=== PATIENT | female | born 1940 | race Caucasian/White ===

== ENCOUNTER 2018-08-10 14:18 | Inpatient (IN) | payer MEDICARE, OTHER ==
[2018-08-10 14:52] LABS: ADD MAN DIFF? NO
[2018-08-10 15:00] LABS: WHITE BLOOD COUNT 5.9 10^3/ul (4.8-10.8)
[2018-08-10 15:00] LABS: BASOPHILS % 0.3 % (0.0-2.0); EOSINOPHILS # 0.2 10^3/ul (0.0-0.5); EOSINOPHILS % 2.6 % (0.0-7.0); HEMATOCRIT 42.5 % (37.0-47.0); LYMPHOCYTES # 1.7 10^3/ul (0.8-2.9); LYMPHOCYTES % 28.8 % (15.0-51.0); MEAN CORPUSCULAR HEMOGLOBIN 28.2 pg (29.0-33.0); MEAN CORPUSCULAR HGB CONC 30.6 g/dl (32.0-37.0); MEAN CORPUSCULAR VOLUME 92.2 fl (82.0-101.0); MEAN PLATELET VOLUME 9.6 fl (7.4-10.4); MONOCYTE # 0.3 10^3/ul (0.3-0.9); MONOCYTES % 5.8 % (0.0-11.0); NEUTROPHIL # 3.6 10^3/ul (1.6-7.5); NEUTROPHILS % 61.5 % (39.0-77.0); PLATELET COUNT 187 10^3/UL (140-415); RED BLOOD COUNT 4.61 10^6/ul (4.20-5.40); RED CELL DISTRIBUTION WIDTH 13.4 % (11.5-14.5)
[2018-08-10] MEDS: CEFEPIME 2GM/50 ML (PMX) 50 ML IVPB (15:01)
[2018-08-10] MEDS: SODIUM CHLORIDE 0.9% 1L BAG IV* (15:02)
[2018-08-10] MEDS: SOD CHLORIDE 0.9% 500 ML IV ×2 (15:03)
[2018-08-10 15:15] LABS: INR 1.03; PROTIME 13.6 Sec (11.9-14.9); PT RATIO 1.1
[2018-08-10 15:16] LABS: PARTIAL THROMBOPLASTIN TIME 35.7 Sec (23.0-35.0)
[2018-08-10 15:20] LABS: ANION GAP 11 (5-13); BLOOD UREA NITROGEN 29 mg/dl (7-20); CALCIUM 9.5 mg/dl (8.4-10.2); CARBON DIOXIDE 22 mmol/L (21-31); CHLORIDE 107 mmol/L (97-110); CREATININE 1.16 mg/dl (0.44-1.00); GLUCOSE 150 mg/dl (70-220); POTASSIUM 4.8 mmol/L (3.5-5.1); SODIUM 140 mmol/L (135-144)
[2018-08-10 15:32] LABS: TROPONIN-I < 0.012 ng/ml (0.000-0.120)
[2018-08-10] MEDS: VANCOMYCIN 1 GM (PMX) 250 ML IVPB (15:32)
[2018-08-10] MEDS: HALOPERIDOL 5 MG INJ IV (16:20)
[2018-08-10] MEDS: LORAZEPAM 2 MG INJ IV (18:21)
[2018-08-10 18:24] LABS: ADD UMIC NO; UR ASCORBIC ACID NEGATIVE (NEGATIVE); UR BILIRUBIN (Dip) NEGATIVE (NEGATIVE); UR BLOOD (Dip) NEGATIVE (NEGATIVE); UR CLARITY CLEAR (CLEAR); UR COLOR YELLOW (YELLOW); UR GLUCOSE (Dip) NEGATIVE (NEGATIVE); UR KETONES (Dip) NEGATIVE (NEGATIVE); UR LEUKOCYTE ESTERASE (Dip) NEGATIVE Leu/ul (NEGATIVE); UR NITRITE (Dip) NEGATIVE (NEGATIVE); UR SPECIFIC GRAVITY (Dip) 1.016 (1.003-1.030); UR TOTAL PROTEIN (Dip) NEGATIVE (NEGATIVE); UR UROBILINOGEN (Dip) NEGATIVE (NEGATIVE)
[2018-08-10 18:26] LABS: ALANINE AMINOTRANSFERASE 12 IU/L (13-69); ALBUMIN 3.8 g/dl (3.3-4.9); ALKALINE PHOSPHATASE 108 IU/L (42-121); ASPARTATE AMINO TRANSFERASE 21 IU/L (15-46); BILIRUBIN,INDIRECT 0.3 mg/dl (0-1.1); BILIRUBIN,TOTAL 0.3 mg/dl (0.2-1.3); LIPASE 115 U/L (23-300); TOTAL PROTEIN 7.5 g/dl (6.1-8.1)
[2018-08-10] MEDS ORDERED: ACETAMINOPHEN 325 MG TAB PO (18:30)
[2018-08-10] MEDS ORDERED: ONDANSETRON 4 MG INJ IV (18:30)
[2018-08-10] MEDS: LEVETIRACETAM 1000 MG (PMX) 100 ML IVPB (18:59)
[2018-08-10 22:14] LABS: LACTIC ACID 3.7 mmol/L (0.5-2.0)
[2018-08-10 23:21] LABS: AADO2 Arterial 559.7 mmHg (7.0-24.0); Allen Test ACCEPTAB; Arterial Base Excess -10.8 mmol/L (-3.0-3); Arterial Blood Gas Oxygen Sat 96.5 mmHG (95.0-100.0); Arterial COHb 0.4 % (0.0-3.0); Arterial Fraction of Oxyhgb 95.5 % (93.0-99.0); Arterial HCO3 18.3 mmol/L (22.0-26.0); Arterial MetHb 0.6 % (0.0-1.5); Arterial Total Hemglobin 16.5 g/dl (12.0-18.0); Arterial pCO2 52.9 mmhg (35-45); MODE MASK - NRB; Site Right Radial
[2018-08-10] MEDS ORDERED: LEVALBUTEROL (NEB) 1.25 MG/0.5 ML AMP (23:54)
[2018-08-10] MEDS: LEVALBUTEROL (NEB) 1.25 MG/0.5 ML AMP HHN (23:58)
[2018-08-11] MEDS ORDERED: LEVALBUTEROL (NEB) 1.25 MG/0.5 ML AMP HHN
[2018-08-11] MEDS: METOPROLOL 5 MG INJ IV (00:10)
[2018-08-11] MEDS ORDERED: LEVALBUTEROL HCL 1.25 MG INHALATION (00:30)
[2018-08-11] MEDS ORDERED: LEVALBUTEROL (NEB) 1.25 MG/0.5 ML AMP INH (01:00)
[2018-08-11] MEDS: DEXTROSE 5%-0.45% NACL 1,000 ML IV (01:24)
[2018-08-11] MEDS: LEVOFLOXACIN 500MG/D5W (PMX) 100 ML IVPB (01:24)
[2018-08-11 01:38] LABS: ABNORMAL IP MESSAGE 1; HEMATOCRIT 49.8 % (37.0-47.0); HEMOGLOBIN 15.1 g/dl (12.0-16.0); MEAN CORPUSCULAR HEMOGLOBIN 28.3 pg (29.0-33.0); MEAN CORPUSCULAR HGB CONC 30.3 g/dl (32.0-37.0); MEAN CORPUSCULAR VOLUME 93.4 fl (82.0-101.0); MEAN PLATELET VOLUME 9.8 fl (7.4-10.4); PLATELET COUNT 221 10^3/UL (140-415); RED BLOOD COUNT 5.33 10^6/ul (4.20-5.40); RED CELL DISTRIBUTION WIDTH 13.7 % (11.5-14.5)
[2018-08-11 01:38] LABS: WHITE BLOOD COUNT 31.4 10^3/ul (4.8-10.8)
[2018-08-11 01:46] LABS: HEMOGLOBIN A1C 5.1 % (0-5.9)
[2018-08-11] MEDS: ALBUTEROL/IPRATROPIUM (NEB) 3 ML AMP INH ×4 (01:46→19:43)
[2018-08-11 01:55] LABS: ALANINE AMINOTRANSFERASE 19 IU/L (13-69); ALBUMIN 3.6 g/dl (3.3-4.9); ALBUMIN/GLOBULIN RATIO 0.92; ALKALINE PHOSPHATASE 125 IU/L (42-121); ANION GAP 16 (5-13); ASPARTATE AMINO TRANSFERASE 28 IU/L (15-46); BILIRUBIN,INDIRECT 0.5 mg/dl (0-1.1); BILIRUBIN,TOTAL 0.5 mg/dl (0.2-1.3); BLOOD UREA NITROGEN 30 mg/dl (7-20); CALCIUM 9.1 mg/dl (8.4-10.2); CARBON DIOXIDE 17 mmol/L (21-31); CHLORIDE 115 mmol/L (97-110); CREATININE 1.32 mg/dl (0.44-1.00); GLUCOSE 195 mg/dl (70-220); MAGNESIUM 2.2 mg/dl (1.7-2.5); POTASSIUM 5.1 mmol/L (3.5-5.1); SODIUM 148 mmol/L (135-144); TOTAL PROTEIN 7.5 g/dl (6.1-8.1)
[2018-08-11 02:06] LABS: ADD MAN DIFF? YES; POSITIVE DIFF @See below
[2018-08-11 02:28] LABS: BAND NEUTROPHILS #M 2.8 10^3/ul (0.0-0.6); BAND NEUTROPHILS % (M) 9 % (0-4); GIANT THROMBO% (M) 1 % (0-0); LYMPHOCYTES #M 1.2 10^3/ul (0.8-2.9); LYMPHOCYTES % (M) 4 % (15-51); MONOCYTE #M 2.5 10^3/ul (0.3-0.9); MONOCYTES % (M) 8 % (0-11); PLATELET ESTIMATE NORMAL; POIKILOCYTOSIS 1+ (0-0); SEG NEUT #M 25.7 10^3/ul (1.6-7.5); SEGMENTED NEUTROPHILS (M) % 79 % (39-77); SMUDGE%M 2 % (0-0)
[2018-08-11] MEDS ORDERED: OLANZAPINE 10 MG VIAL IM (02:30)
[2018-08-11 02:57] LABS: AADO2 Arterial 252.9 mmHg (7.0-24.0); Allen Test ACCEPTAB; Arterial Base Excess -8.7 mmol/L (-3.0-3); Arterial Blood Gas Oxygen Sat 89.1 mmHG (95.0-100.0); Arterial COHb 0.9 % (0.0-3.0); Arterial Fraction of Oxyhgb 87.9 % (93.0-99.0); Arterial HCO3 17.8 mmol/L (22.0-26.0); Arterial MetHb 0.4 % (0.0-1.5); Arterial Total Hemglobin 15.8 g/dl (12.0-18.0); Arterial pCO2 40.6 mmhg (35-45); MODE MASK - VENTI; Site Right Radial
[2018-08-11] MEDS: LACTULOSE 30ML CUP PO ×4 (05:53→21:23)
[2018-08-11] MEDS: FUROSEMIDE 20 MG INJ IV ×3 (05:57→17:55)
[2018-08-11] MEDS ORDERED: LACTULOSE 30ML CUP PO (06:00)
[2018-08-11] MEDS: LEVALBUTEROL (NEB) 1.25 MG/0.5 ML AMP HHN ×2 (08:13→15:42)
[2018-08-11 08:48] LABS: AMPHETAMINE/METHAMPHETAMINE Negative (NEGATIVE); BARBITURATES Negative (NEGATIVE); BENZODIAZEPINES Negative (NEGATIVE); CANNABINOIDS Negative (NEGATIVE); COCAINE Negative (NEGATIVE); OPIATES Negative (NEGATIVE)
[2018-08-11] MEDS: FAMOTIDINE 20 MG TAB PO ×2 (09:00→09:04)
[2018-08-11] MEDS: DOCUSATE SODIUM 250 MG CAP PO ×2 (09:00→09:02)
[2018-08-11] MEDS: QUETIAPINE 25 MG TAB PO ×2 (09:00→09:02)
[2018-08-11] MEDS: CLOPIDOGREL 75 MG TAB PO ×3 (09:00→15:30)
[2018-08-11] MEDS: DORZOLAMIDE 2% 10 ML OPH RIGHT EYE ×2 (09:02→21:22)
[2018-08-11] MEDS: LEVETIRACETAM 500 MG (PMX) 100 ML IVPB ×2 (09:02→21:22)
[2018-08-11] MEDS: CLONIDINE 0.2 MG/24 HR PATCH TRANSDERM (09:03)
[2018-08-11 11:41] LABS: CREATINE KINASE 87 IU/L (23-200)
[2018-08-11 11:51] LABS: CK INDEX 4.6; CK-MB 4.01 ng/ml (0.0-2.4)
[2018-08-11 12:42] LABS: B-TYPE NATRIURETIC PEPTIDE 13000 PG/ML (0-450)
[2018-08-11 13:05] LABS: AADO2 Arterial 249.3 mmHg (7.0-24.0); Allen Test ACCEPTAB; Arterial Base Excess -6.6 mmol/L (-3.0-3); Arterial Blood Gas Oxygen Sat 95.7 mmHG (95.0-100.0); Arterial COHb 0.7 % (0.0-3.0); Arterial Fraction of Oxyhgb 94.7 % (93.0-99.0); Arterial HCO3 17.1 mmol/L (22.0-26.0); Arterial MetHb 0.3 % (0.0-1.5); Arterial Total Hemglobin 14.5 g/dl (12.0-18.0); Arterial pCO2 29.7 mmhg (35-45); Blood Gas IEPAP 18/6; Blood Gas PS 12; MODE MASK - BIPAP; Site Right Radial
[2018-08-11] MEDS: D5W-0.45 NACL + KCL 20 MEQ 1,000 ML IV (13:38)
[2018-08-11 14:11] LABS: CREATINE KINASE 83 IU/L (23-200)
[2018-08-11 14:22] LABS: CK INDEX 4.9; CK-MB 4.05 ng/ml (0.0-2.4)
[2018-08-11] MEDS: ASPIRIN (EC) 81 MG TAB PO (15:30)
[2018-08-11 17:43] LABS: CREATINE KINASE 78 IU/L (23-200)
[2018-08-11 17:55] LABS: CK INDEX 5.1; CK-MB 3.94 ng/ml (0.0-2.4)
[2018-08-11] MEDS: DOXYCYCLINE 100 MG in SOD CHLORIDE 0.9% 250 ML IVPB (21:21)
[2018-08-11] MEDS: QUETIAPINE 100 MG TAB PO (21:23)
[2018-08-11] MEDS: traZODone 50 MG TAB PO (21:23)
[2018-08-11] MEDS: LATANOPROST 0.005% 2.5 ML OPH BOTH EYES (21:30)
[2018-08-11 21:43] LABS: CREATINE KINASE 106 IU/L (23-200)
[2018-08-11 21:53] LABS: CK INDEX 3.7; CK-MB 3.96 ng/ml (0.0-2.4)
[2018-08-12] MEDS: FUROSEMIDE 20 MG INJ IV ×4 (00:19→17:30)
[2018-08-12] MEDS: LEVALBUTEROL (NEB) 1.25 MG/0.5 ML AMP HHN ×3 (00:45→15:40)
[2018-08-12] MEDS: ALBUTEROL/IPRATROPIUM (NEB) 3 ML AMP INH ×4 (02:30→19:22)
[2018-08-12] MEDS: LEVOFLOXACIN 500MG/D5W (PMX) 100 ML IVPB (04:20)
[2018-08-12 06:38] LABS: LACTIC ACID 1.8 mmol/L (0.5-2.0)
[2018-08-12 07:32] LABS: ADD MAN DIFF? NO
[2018-08-12 07:34] LABS: WHITE BLOOD COUNT 14.5 10^3/ul (4.8-10.8)
[2018-08-12 07:34] LABS: BASOPHILS % 0.2 % (0.0-2.0); EOSINOPHILS # 0.2 10^3/ul (0.0-0.5); EOSINOPHILS % 1.2 % (0.0-7.0); HEMATOCRIT 38.3 % (37.0-47.0); HEMOGLOBIN 11.9 g/dl (12.0-16.0); LYMPHOCYTES # 1.5 10^3/ul (0.8-2.9); LYMPHOCYTES % 10.1 % (15.0-51.0); MEAN CORPUSCULAR HEMOGLOBIN 28.3 pg (29.0-33.0); MEAN CORPUSCULAR HGB CONC 31.1 g/dl (32.0-37.0); MEAN CORPUSCULAR VOLUME 91.2 fl (82.0-101.0); MEAN PLATELET VOLUME 10.9 fl (7.4-10.4); MONOCYTE # 1.2 10^3/ul (0.3-0.9); MONOCYTES % 8.4 % (0.0-11.0); NEUTROPHIL # 11.5 10^3/ul (1.6-7.5); NEUTROPHILS % 79.5 % (39.0-77.0); PLATELET COUNT 114 10^3/UL (140-415); RED CELL DISTRIBUTION WIDTH 14.2 % (11.5-14.5)
[2018-08-12 07:52] LABS: ANION GAP 11 (5-13); BLOOD UREA NITROGEN 38 mg/dl (7-20); CALCIUM 9.1 mg/dl (8.4-10.2); CARBON DIOXIDE 19 mmol/L (21-31); CHLORIDE 111 mmol/L (97-110); CREATININE 1.39 mg/dl (0.44-1.00); GLUCOSE 136 mg/dl (70-220); POTASSIUM 4.5 mmol/L (3.5-5.1); SODIUM 141 mmol/L (135-144)
[2018-08-12] MEDS: DOCUSATE SODIUM 250 MG CAP PO (09:00)
[2018-08-12] MEDS: LACTULOSE 30ML CUP PO ×2 (09:00→20:51)
[2018-08-12] MEDS: QUETIAPINE 25 MG TAB PO (09:00)
[2018-08-12] MEDS: CLOPIDOGREL 75 MG TAB PO (09:01)
[2018-08-12] MEDS: D5W-0.45 NACL + KCL 20 MEQ 1,000 ML IV (09:02)
[2018-08-12] MEDS: FAMOTIDINE 20 MG TAB PO (09:02)
[2018-08-12] MEDS: DOXYCYCLINE 100 MG in SOD CHLORIDE 0.9% 250 ML IVPB ×2 (09:03→21:13)
[2018-08-12] MEDS: LEVETIRACETAM 500 MG (PMX) 100 ML IVPB ×2 (09:03→20:50)
[2018-08-12] MEDS: DORZOLAMIDE 2% 10 ML OPH RIGHT EYE ×2 (09:05→20:51)
[2018-08-12 10:29] LABS: CREATINE KINASE 40 IU/L (23-200)
[2018-08-12 10:42] LABS: CK-MB 3.19 ng/ml (0.0-2.4); TROPONIN-I 0.887 ng/ml (0.000-0.120)
[2018-08-12 14:32] LABS: CREATINE KINASE 32 IU/L (23-200)
[2018-08-12 14:44] LABS: CK INDEX 8.6; CK-MB 2.76 ng/ml (0.0-2.4)
[2018-08-12 14:47] LABS: TROPONIN-I 0.736 ng/ml (0.000-0.120)
[2018-08-12 18:49] LABS: ANION GAP 13 (5-13); BLOOD UREA NITROGEN 35 mg/dl (7-20); CALCIUM 9.5 mg/dl (8.4-10.2); CARBON DIOXIDE 22 mmol/L (21-31); CHLORIDE 107 mmol/L (97-110); CREATININE 1.34 mg/dl (0.44-1.00); GLUCOSE 125 mg/dl (70-220); POTASSIUM 4.1 mmol/L (3.5-5.1); SODIUM 142 mmol/L (135-144)
[2018-08-12] MEDS: FLUTICASONE/VILANTEROL 200-25 INH DEVICE INH (19:00)
[2018-08-12] MEDS: MUPIROCIN 2% 22 GM OINT TOP (20:51)
[2018-08-12] MEDS: LATANOPROST 0.005% 2.5 ML OPH BOTH EYES (21:15)
[2018-08-12 22:45] LABS: CREATINE KINASE 20 IU/L (23-200)
[2018-08-12 22:55] LABS: CK INDEX 9.7; CK-MB 1.94 ng/ml (0.0-2.4)
[2018-08-12 23:17] LABS: TROPONIN-I 0.658 ng/ml (0.000-0.120)
[2018-08-13] MEDS: LEVALBUTEROL (NEB) 1.25 MG/0.5 ML AMP HHN ×3 (00:09→16:12)
[2018-08-13] MEDS: FUROSEMIDE 20 MG INJ IV ×4 (00:22→17:56)
[2018-08-13] MEDS: LEVOFLOXACIN 500MG/D5W (PMX) 100 ML IVPB (01:16)
[2018-08-13] MEDS: ALBUTEROL/IPRATROPIUM (NEB) 3 ML AMP INH ×4 (02:00→20:00)
[2018-08-13 05:10] LABS: AADO2 Arterial 217.7 mmHg (7.0-24.0); Allen Test ACCEPTAB; Arterial Base Excess -3.1 mmol/L (-3.0-3); Arterial Blood Gas Oxygen Sat 97.5 mmHG (95.0-100.0); Arterial COHb 0.3 % (0.0-3.0); Arterial HCO3 20.8 mmol/L (22.0-26.0); Arterial MetHb 0.2 % (0.0-1.5); Arterial Total Hemglobin 12.4 g/dl (12.0-18.0); Arterial pCO2 33.5 mmhg (35-45); Blood Gas IEPAP 18/8; MODE MASK - BIPAP; Site Right Radial
[2018-08-13 06:13] LABS: ADD MAN DIFF? NO
[2018-08-13 06:18] LABS: BASOPHILS % 0.2 % (0.0-2.0); EOSINOPHILS # 0.4 10^3/ul (0.0-0.5); EOSINOPHILS % 2.9 % (0.0-7.0); HEMATOCRIT 35.3 % (37.0-47.0); LYMPHOCYTES # 1.5 10^3/ul (0.8-2.9); LYMPHOCYTES % 10.2 % (15.0-51.0); MEAN CORPUSCULAR HEMOGLOBIN 28.3 pg (29.0-33.0); MEAN CORPUSCULAR HGB CONC 31.2 g/dl (32.0-37.0); MEAN CORPUSCULAR VOLUME 90.7 fl (82.0-101.0); MEAN PLATELET VOLUME 10.9 fl (7.4-10.4); MONOCYTE # 1.1 10^3/ul (0.3-0.9); MONOCYTES % 7.7 % (0.0-11.0); NEUTROPHIL # 11.2 10^3/ul (1.6-7.5); NEUTROPHILS % 78.5 % (39.0-77.0); PLATELET COUNT 104 10^3/UL (140-415); RED BLOOD COUNT 3.89 10^6/ul (4.20-5.40); RED CELL DISTRIBUTION WIDTH 14.3 % (11.5-14.5)
[2018-08-13 06:18] LABS: WHITE BLOOD COUNT 14.3 10^3/ul (4.8-10.8)
[2018-08-13 06:45] LABS: CREATINE KINASE 22 IU/L (23-200)
[2018-08-13 06:55] LABS: LACTIC ACID 1.7 mmol/L (0.5-2.0)
[2018-08-13 06:58] LABS: CK INDEX 6.9; CK-MB 1.51 ng/ml (0.0-2.4)
[2018-08-13 07:09] LABS: TROPONIN-I 0.502 ng/ml (0.000-0.120)
[2018-08-13 07:11] LABS: FREE THYROXINE INDEX (Calc) 2.83 ug/ml (0.65-3.89); T3 UPTAKE 38.3 % (23.5-40.5); T4 (THYROXINE) 7.4 ug/dl (5.5-11.0)
[2018-08-13] MEDS: LEVETIRACETAM 500 MG (PMX) 100 ML IVPB ×2 (07:29→20:51)
[2018-08-13] MEDS: CLOPIDOGREL 75 MG TAB PO (07:29)
[2018-08-13] MEDS: FAMOTIDINE 20 MG TAB PO (07:29)
[2018-08-13] MEDS: LACTULOSE 30ML CUP PO ×2 (07:29→20:51)
[2018-08-13] MEDS: MUPIROCIN 2% 22 GM OINT TOP ×2 (07:30→20:50)
[2018-08-13] MEDS: D5W-0.45 NACL + KCL 20 MEQ 1,000 ML IV (07:30)
[2018-08-13] MEDS: DOCUSATE SODIUM 250 MG CAP PO (07:31)
[2018-08-13] MEDS: DORZOLAMIDE 2% 10 ML OPH RIGHT EYE ×2 (07:31→20:50)
[2018-08-13 07:59] LABS: ALANINE AMINOTRANSFERASE 14 IU/L (13-69); ALBUMIN 3.4 g/dl (3.3-4.9); ALBUMIN/GLOBULIN RATIO 0.94; ALKALINE PHOSPHATASE 92 IU/L (42-121); ANION GAP 12 (5-13); ASPARTATE AMINO TRANSFERASE 20 IU/L (15-46); BILIRUBIN,INDIRECT 0.5 mg/dl (0-1.1); BILIRUBIN,TOTAL 0.5 mg/dl (0.2-1.3); BLOOD UREA NITROGEN 33 mg/dl (7-20); CALCIUM 9.1 mg/dl (8.4-10.2); CARBON DIOXIDE 22 mmol/L (21-31); CHLORIDE 110 mmol/L (97-110); CREATININE 1.19 mg/dl (0.44-1.00); GLUCOSE 132 mg/dl (70-220); POTASSIUM 3.5 mmol/L (3.5-5.1); SODIUM 144 mmol/L (135-144)
[2018-08-13] MEDS: FLUTICASONE/VILANTEROL 200-25 INH DEVICE INH (09:00)
[2018-08-13] MEDS: DOXYCYCLINE 100 MG in SOD CHLORIDE 0.9% 250 ML IVPB ×2 (09:16→21:05)
[2018-08-13 09:58] LABS: CREATINE KINASE 36 IU/L (23-200)
[2018-08-13 10:09] LABS: CK INDEX 3.2; CK-MB 1.15 ng/ml (0.0-2.4)
[2018-08-13 10:10] LABS: TROPONIN-I 0.367 ng/ml (0.000-0.120)
[2018-08-13] MEDS: FOSFOMYCIN 3 GM PACKET PO (17:56)
[2018-08-13] MEDS: LATANOPROST 0.005% 2.5 ML OPH BOTH EYES (20:50)
[2018-08-14] MEDS: D5W-0.45 NACL + KCL 20 MEQ 1,000 ML IV ×2 (00:20→19:25)
[2018-08-14] MEDS: FUROSEMIDE 20 MG INJ IV ×4 (00:21→18:16)
[2018-08-14] MEDS: ALBUTEROL/IPRATROPIUM (NEB) 3 ML AMP INH ×3 (02:00→13:30)
[2018-08-14] MEDS: LEVOFLOXACIN 500MG/D5W (PMX) 100 ML IVPB (02:12)
[2018-08-14 05:02] LABS: AADO2 Arterial 145.3 mmHg (7.0-24.0); Allen Test ACCEPTAB; Arterial Base Excess 0.2 mmol/L (-3.0-3); Arterial Blood Gas Oxygen Sat 97.5 mmHG (95.0-100.0); Arterial COHb 0.8 % (0.0-3.0); Arterial Fraction of Oxyhgb 96.5 % (93.0-99.0); Arterial HCO3 24.5 mmol/L (22.0-26.0); Arterial MetHb 0.2 % (0.0-1.5); Arterial Total Hemglobin 12.3 g/dl (12.0-18.0); Arterial pCO2 38.7 mmhg (35-45); Blood Gas IEPAP 18/8; Blood Gas PS 10; MODE MASK - BIPAP; Site Right Radial
[2018-08-14 05:29] LABS: ADD MAN DIFF? NO
[2018-08-14 05:50] LABS: BASOPHILS % 0.3 % (0.0-2.0); EOSINOPHILS # 0.5 10^3/ul (0.0-0.5); EOSINOPHILS % 3.7 % (0.0-7.0); HEMOGLOBIN 11.1 g/dl (12.0-16.0); LYMPHOCYTES % 14.1 % (15.0-51.0); MEAN CORPUSCULAR HEMOGLOBIN 28.4 pg (29.0-33.0); MEAN CORPUSCULAR HGB CONC 31.7 g/dl (32.0-37.0); MEAN CORPUSCULAR VOLUME 89.5 fl (82.0-101.0); MEAN PLATELET VOLUME 10.3 fl (7.4-10.4); MONOCYTE # 1.3 10^3/ul (0.3-0.9); MONOCYTES % 8.8 % (0.0-11.0); NEUTROPHIL # 10.3 10^3/ul (1.6-7.5); NEUTROPHILS % 72.5 % (39.0-77.0); PLATELET COUNT 124 10^3/UL (140-415); RED BLOOD COUNT 3.91 10^6/ul (4.20-5.40); RED CELL DISTRIBUTION WIDTH 14.2 % (11.5-14.5)
[2018-08-14 05:50] LABS: WHITE BLOOD COUNT 14.2 10^3/ul (4.8-10.8)
[2018-08-14 06:12] LABS: ANION GAP 11 (5-13); BLOOD UREA NITROGEN 29 mg/dl (7-20); CARBON DIOXIDE 26 mmol/L (21-31); CHLORIDE 107 mmol/L (97-110); CREATININE 1.17 mg/dl (0.44-1.00); GLUCOSE 121 mg/dl (70-220); POTASSIUM 3.5 mmol/L (3.5-5.1); SODIUM 144 mmol/L (135-144)
[2018-08-14] MEDS: LEVALBUTEROL (NEB) 1.25 MG/0.5 ML AMP HHN ×3 (07:43→13:30)
[2018-08-14] MEDS: MUPIROCIN 2% 22 GM OINT TOP ×2 (08:48→22:55)
[2018-08-14] MEDS: FAMOTIDINE 20 MG TAB PO (08:52)
[2018-08-14] MEDS: LACTULOSE 30ML CUP PO ×2 (08:52→21:24)
[2018-08-14] MEDS: LEVETIRACETAM 500 MG (PMX) 100 ML IVPB ×2 (08:52→21:27)
[2018-08-14] MEDS: DOCUSATE SODIUM 250 MG CAP PO (08:52)
[2018-08-14] MEDS: CLOPIDOGREL 75 MG TAB PO (08:52)
[2018-08-14] MEDS: DOXYCYCLINE 100 MG in SOD CHLORIDE 0.9% 250 ML IVPB ×2 (08:53→21:51)
[2018-08-14] MEDS: FLUTICASONE/VILANTEROL 200-25 INH DEVICE INH (08:54)
[2018-08-14] MEDS: DORZOLAMIDE 2% 10 ML OPH RIGHT EYE ×2 (09:03→22:55)
[2018-08-14] MEDS: METOPROLOL 25 MG TAB PO ×2 (11:46→21:25)
[2018-08-14] MEDS: LATANOPROST 0.005% 2.5 ML OPH BOTH EYES (21:25)
[2018-08-15] MEDS: LEVALBUTEROL (NEB) 1.25 MG/0.5 ML AMP HHN ×3 (00:19→15:19)
[2018-08-15] MEDS: FUROSEMIDE 20 MG INJ IV ×4 (00:33→12:00)
[2018-08-15] MEDS: LEVOFLOXACIN 500MG/D5W (PMX) 100 ML IVPB (01:18)
[2018-08-15 07:44] LABS: AADO2 Arterial 89.7 mmHg (7.0-24.0); Allen Test ACCEPTAB; Arterial Base Excess 0.4 mmol/L (-3.0-3); Arterial Blood Gas Oxygen Sat 95.9 mmHG (95.0-100.0); Arterial COHb 0.4 % (0.0-3.0); Arterial Fraction of Oxyhgb 95.2 % (93.0-99.0); Arterial HCO3 24.5 mmol/L (22.0-26.0); Arterial MetHb 0.3 % (0.0-1.5); Arterial Total Hemglobin 11.4 g/dl (12.0-18.0); Arterial pCO2 37.5 mmhg (35-45); MODE NASAL CANNULA; Site Left Radial
[2018-08-15 08:20] LABS: ADD MAN DIFF? NO
[2018-08-15 08:26] LABS: ABNORMAL IP MESSAGE 1; BASOPHIL # 0.1 10^3/ul (0.0-0.1); BASOPHILS % 0.4 % (0.0-2.0); EOSINOPHILS # 0.8 10^3/ul (0.0-0.5); EOSINOPHILS % 5.6 % (0.0-7.0); HEMATOCRIT 35.4 % (37.0-47.0); HEMOGLOBIN 11.1 g/dl (12.0-16.0); LYMPHOCYTES # 2.5 10^3/ul (0.8-2.9); LYMPHOCYTES % 17.5 % (15.0-51.0); MEAN CORPUSCULAR HEMOGLOBIN 28.7 pg (29.0-33.0); MEAN CORPUSCULAR HGB CONC 31.4 g/dl (32.0-37.0); MEAN CORPUSCULAR VOLUME 91.5 fl (82.0-101.0); MEAN PLATELET VOLUME 9.9 fl (7.4-10.4); MONOCYTE # 1.5 10^3/ul (0.3-0.9); MONOCYTES % 10.8 % (0.0-11.0); NEUTROPHIL # 9.3 10^3/ul (1.6-7.5); NEUTROPHILS % 65.3 % (39.0-77.0); PLATELET COUNT 143 10^3/UL (140-415); RED BLOOD COUNT 3.87 10^6/ul (4.20-5.40); RED CELL DISTRIBUTION WIDTH 14.3 % (11.5-14.5)
[2018-08-15 08:26] LABS: WHITE BLOOD COUNT 14.2 10^3/ul (4.8-10.8)
[2018-08-15 08:30] LABS: POSITIVE DIFF @See below
[2018-08-15 08:53] LABS: ANION GAP 9 (5-13); BLOOD UREA NITROGEN 28 mg/dl (7-20); CALCIUM 9.2 mg/dl (8.4-10.2); CARBON DIOXIDE 29 mmol/L (21-31); CHLORIDE 105 mmol/L (97-110); CREATININE 1.12 mg/dl (0.44-1.00); GLUCOSE 111 mg/dl (70-220); MAGNESIUM 1.6 mg/dl (1.7-2.5); POTASSIUM 3.1 mmol/L (3.5-5.1); SODIUM 143 mmol/L (135-144)
[2018-08-15] MEDS: LACTULOSE 30ML CUP PO (09:00)
[2018-08-15] MEDS: DOCUSATE SODIUM 250 MG CAP PO (09:00)
[2018-08-15] MEDS: DOXYCYCLINE 100 MG in SOD CHLORIDE 0.9% 250 ML IVPB ×2 (09:04→21:49)
[2018-08-15] MEDS: METOPROLOL 25 MG TAB PO ×2 (09:04→21:52)
[2018-08-15] MEDS: CLOPIDOGREL 75 MG TAB PO (09:04)
[2018-08-15] MEDS: DORZOLAMIDE 2% 10 ML OPH RIGHT EYE ×2 (09:04→21:48)
[2018-08-15] MEDS: MUPIROCIN 2% 22 GM OINT TOP ×2 (09:04→21:47)
[2018-08-15] MEDS: FAMOTIDINE 20 MG TAB PO (09:04)
[2018-08-15] MEDS: LEVETIRACETAM 500 MG (PMX) 100 ML IVPB (09:04)
[2018-08-15] MEDS: FLUTICASONE/VILANTEROL 200-25 INH DEVICE INH (09:14)
[2018-08-15] MEDS: MAGNESIUM SULFATE 1 GM/D5W 100 ML IVPB (10:53)
[2018-08-15] MEDS: POTASSIUM CHLORIDE 20 MEQ POWDER FOR ORAL SOLN NGT ×2 (10:53→12:57)
[2018-08-15] MEDS: DEXTROSE 5%-0.45% NACL 1,000 ML IV (15:15)
[2018-08-15] MEDS ORDERED: LEVETIRACETAM 500 MG TAB PO (21:00)
[2018-08-15] MEDS: LATANOPROST 0.005% 2.5 ML OPH BOTH EYES (21:00)
[2018-08-15] MEDS: LEVETIRACETAM (100 MG/ML) 5ML CUP NGT (21:47)
[2018-08-16] MEDS: LEVALBUTEROL (NEB) 1.25 MG/0.5 ML AMP HHN ×3 (00:56→16:14)
[2018-08-16 08:09] LABS: ANION GAP 10 (5-13); BLOOD UREA NITROGEN 28 mg/dl (7-20); CALCIUM 9.5 mg/dl (8.4-10.2); CARBON DIOXIDE 26 mmol/L (21-31); CHLORIDE 110 mmol/L (97-110); CREATININE 0.79 mg/dl (0.44-1.00); GLUCOSE 111 mg/dl (70-220); POTASSIUM 4.1 mmol/L (3.5-5.1); SODIUM 146 mmol/L (135-144)
[2018-08-16] MEDS: LEVETIRACETAM (100 MG/ML) 5ML CUP NGT ×2 (08:36→20:47)
[2018-08-16] MEDS: DOXYCYCLINE 100 MG in SOD CHLORIDE 0.9% 250 ML IVPB ×2 (08:36→20:48)
[2018-08-16] MEDS: LEVOFLOXACIN 500 MG TAB NGT (08:37)
[2018-08-16] MEDS: FLUTICASONE/VILANTEROL 200-25 INH DEVICE INH (08:37)
[2018-08-16] MEDS: DOCUSATE SODIUM 250 MG CAP PO (08:37)
[2018-08-16] MEDS: CLOPIDOGREL 75 MG TAB PO (08:37)
[2018-08-16] MEDS: FAMOTIDINE 20 MG TAB PO (08:37)
[2018-08-16] MEDS: METOPROLOL 25 MG TAB PO ×2 (08:37→20:48)
[2018-08-16] MEDS: MUPIROCIN 2% 22 GM OINT TOP ×2 (08:38→20:49)
[2018-08-16] MEDS: DORZOLAMIDE 2% 10 ML OPH RIGHT EYE ×2 (08:38→20:49)
[2018-08-16] MEDS: ACETAMINOPHEN 325 MG TAB PO (09:09)
[2018-08-16] MEDS: NYSTATIN 30 GM POWDER BTL TOP (20:47)
[2018-08-16] MEDS: LATANOPROST 0.005% 2.5 ML OPH BOTH EYES (20:48)
[2018-08-17] MEDS: LEVALBUTEROL (NEB) 1.25 MG/0.5 ML AMP HHN ×3 (01:28→16:00)
[2018-08-17] MEDS: METOPROLOL 25 MG TAB PO ×2 (09:00→21:16)
[2018-08-17] MEDS: FLUTICASONE/VILANTEROL 200-25 INH DEVICE INH (09:08)
[2018-08-17] MEDS: MUPIROCIN 2% 22 GM OINT TOP ×2 (09:09→21:17)
[2018-08-17] MEDS: NYSTATIN 30 GM POWDER BTL TOP ×2 (09:09→21:17)
[2018-08-17] MEDS: LEVETIRACETAM (100 MG/ML) 5ML CUP NGT ×2 (09:11→21:00)
[2018-08-17] MEDS: DORZOLAMIDE 2% 10 ML OPH RIGHT EYE ×2 (09:11→21:16)
[2018-08-17] MEDS: DOXYCYCLINE 100 MG in SOD CHLORIDE 0.9% 250 ML IVPB ×2 (09:15→21:21)
[2018-08-17] MEDS: DOCUSATE SODIUM 250 MG CAP PO (09:16)
[2018-08-17] MEDS: FAMOTIDINE 20 MG TAB PO (09:16)
[2018-08-17] MEDS: LEVOFLOXACIN 500 MG TAB NGT (09:16)
[2018-08-17] MEDS: CLOPIDOGREL 75 MG TAB PO (09:16)
[2018-08-17] MEDS: ACETAMINOPHEN 325 MG TAB PO (21:16)
[2018-08-17] MEDS: LATANOPROST 0.005% 2.5 ML OPH BOTH EYES (21:17)
== END 2018-08-17 23:01 | DRG 871 ==
LOC: 5EC 08-17 14:45 → E/R 14:18 → 2NE 08-15 15:35 → ICU 18:24
PROC: 5A09457 Assistance with Respiratory Ventilation, 24-96 Consecutive Hours, Continuous Positive Airway Pressure (ICD-10-PCS; principal; 2018-08-10)
DX: A41.9 Sepsis, unspecified organism (principal); R65.21 Severe sepsis with septic shock; J69.0 Pneumonitis due to inhalation of food and vomit; J96.02 Acute respiratory failure with hypercapnia; J96.01 Acute respiratory failure with hypoxia; G93.41 Metabolic encephalopathy; I21.A1 Myocardial infarction type 2; E87.2 Acidosis; F20.0 Paranoid schizophrenia; I13.0 Hypertensive heart and chronic kidney disease with heart failure and stage 1 through stage 4 chronic kidney disease, or unspecified chronic kidney disease; J44.1 Chronic obstructive pulmonary disease with (acute) exacerbation; N17.9 Acute kidney failure, unspecified; N39.0 Urinary tract infection, site not specified; I42.9 Cardiomyopathy, unspecified; I50.9 Heart failure, unspecified; N18.9 Chronic kidney disease, unspecified; B95.62 Methicillin resistant Staphylococcus aureus infection as the cause of diseases classified elsewhere; D69.6 Thrombocytopenia, unspecified; D64.9 Anemia, unspecified; E66.01 Morbid (severe) obesity due to excess calories; F01.50 Vascular dementia, unspecified severity, without behavioral disturbance, psychotic disturbance, mood disturbance, and anxiety; G62.9 Polyneuropathy, unspecified; G40.909 Epilepsy, unspecified, not intractable, without status epilepticus; I25.10 Atherosclerotic heart disease of native coronary artery without angina pectoris; K21.9 Gastro-esophageal reflux disease without esophagitis; M19.90 Unspecified osteoarthritis, unspecified site; M47.9 Spondylosis, unspecified; M25.60 Stiffness of unspecified joint, not elsewhere classified; R13.10 Dysphagia, unspecified; R19.7 Diarrhea, unspecified; R53.81 Other malaise; Z68.36 Body mass index [BMI] 36.0-36.9, adult; Z74.01 Bed confinement status; Z87.891 Personal history of nicotine dependence
CPT/HCPCS: 36415; 36600; 70450; 71045; 74176; 76705; 80048; 80053; 80076; 80307; 81003; 82550; 82553; 82803; 82962; 83036; 83605; 83690; 83735; 83880; 84436; 84443; 84479; 84484; 85025; 85610; 85730; 87040; 87081; 87086; 92526; 92610; 93005; 93306; 94640; 94660; 94664; 96374; 96375; 99291-25

== ENCOUNTER 2018-12-30 12:05 | Inpatient (IN) | payer MEDICARE, OTHER ==
[2018-12-30] MEDS ORDERED: SODIUM CHLORIDE 0.9% 1L BAG IV* (12:09)
[2018-12-30 12:25] LABS: ADD MAN DIFF? NO
[2018-12-30] MEDS: SODIUM CHLORIDE 0.9% 1L BAG IV* (12:37)
[2018-12-30] MEDS: CEFEPIME 2GM/50 ML (PMX) 50 ML IVPB (12:37)
[2018-12-30] MEDS: ACETAMINOPHEN 325 MG TAB PO (12:37)
[2018-12-30 12:41] LABS: WHITE BLOOD COUNT 15.5 10^3/ul (4.8-10.8)
[2018-12-30 12:41] LABS: BASOPHIL # 0.1 10^3/ul (0.0-0.1); BASOPHILS % 0.5 % (0.0-2.0); EOSINOPHILS # 0.1 10^3/ul (0.0-0.5); EOSINOPHILS % 0.5 % (0.0-7.0); HEMOGLOBIN 10.1 g/dl (12.0-16.0); LYMPHOCYTES # 0.7 10^3/ul (0.8-2.9); LYMPHOCYTES % 4.4 % (15.0-51.0); MEAN CORPUSCULAR HEMOGLOBIN 26.6 pg (29.0-33.0); MEAN CORPUSCULAR HGB CONC 30.6 g/dl (32.0-37.0); MEAN CORPUSCULAR VOLUME 87.1 fl (82.0-101.0); MEAN PLATELET VOLUME 9.6 fl (7.4-10.4); MONOCYTE # 1.3 10^3/ul (0.3-0.9); MONOCYTES % 8.6 % (0.0-11.0); NEUTROPHIL # 13.2 10^3/ul (1.6-7.5); NEUTROPHILS % 84.8 % (39.0-77.0); PLATELET COUNT 330 10^3/UL (140-415); RED BLOOD COUNT 3.79 10^6/ul (4.20-5.40); RED CELL DISTRIBUTION WIDTH 16.6 % (11.5-14.5)
[2018-12-30 12:54] LABS: INR 1.15; PROTIME 14.8 Sec (11.9-14.9); PT RATIO 1.2
[2018-12-30 12:55] LABS: ALANINE AMINOTRANSFERASE 22 IU/L (13-69); ALBUMIN 3.8 g/dl (3.3-4.9); ALBUMIN/GLOBULIN RATIO 0.95; ALKALINE PHOSPHATASE 207 IU/L (42-121); ANION GAP 10 (5-13); ASPARTATE AMINO TRANSFERASE 47 IU/L (15-46); BILIRUBIN,INDIRECT 0.2 mg/dl (0-1.1); BILIRUBIN,TOTAL 0.2 mg/dl (0.2-1.3); BLOOD UREA NITROGEN 31 mg/dl (7-20); CALCIUM 9.6 mg/dl (8.4-10.2); CARBON DIOXIDE 27 mmol/L (21-31); CHLORIDE 107 mmol/L (97-110); CREATININE 1.14 mg/dl (0.44-1.00); GLUCOSE 199 mg/dl (70-220); POTASSIUM 4.1 mmol/L (3.5-5.1); SODIUM 144 mmol/L (135-144); TOTAL PROTEIN 7.8 g/dl (6.1-8.1)
[2018-12-30 13:06] LABS: TROPONIN-I < 0.012 ng/ml (0.000-0.120)
[2018-12-30] MEDS: VANCOMYCIN 1 GM (PMX) 250 ML IVPB (13:40)
[2018-12-30] MEDS ORDERED: ACETAMINOPHEN 325 MG TAB PO ×2 (14:00→15:00)
[2018-12-30] MEDS ORDERED: ONDANSETRON 4 MG INJ IV ×2 (14:00→15:00)
[2018-12-30] MEDS ORDERED: morphine 2 MG INJ IV (15:00)
[2018-12-30] MEDS ORDERED: NACL 0.9% 3 ML SYG IV (15:00)
[2018-12-30] MEDS ORDERED: LEVALBUTEROL HCL 1.25 MG INHALATION (15:00)
[2018-12-30] MEDS ORDERED: VANCOMYCIN IV PER PHARMACY XX (15:00)
[2018-12-30] MEDS ORDERED: ALBUTEROL 0.083% (NEB) 2.5 MG/3 ML AMP NEB (15:00)
[2018-12-30] MEDS ORDERED: ACETAMINOPHEN 650 MG SUPP PR (15:00)
[2018-12-30] MEDS ORDERED: HYDROCODONE/APAP (5/325) TAB PO (15:00)
[2018-12-30] MEDS: CLONIDINE 0.2 MG/24 HR PATCH TRANSDERM (16:00)
[2018-12-30] MEDS: SODIUM CHLORIDE 0.9% 1L BAG IV ×2 (16:18→16:34)
[2018-12-30] MEDS: SOD CHLORIDE 0.9% 1,000 ML IV (16:21)
[2018-12-30] MEDS: PIPER-TAZO 3.375 GM IV (PMX) 100 ML IVPB ×2 (16:48→21:08)
[2018-12-30] MEDS: FLUTICASONE/VILANTEROL 200-25 INH DEVICE INH (17:00)
[2018-12-30] MEDS: AZITHROMYCIN 500MG/NS (PMX) 250 ML IVPB (17:52)
[2018-12-30] MEDS: VANCOMYCIN 1 GM 250 ML IVPB ×2 (17:52→17:57)
[2018-12-30] MEDS: FAMOTIDINE 20 MG INJ IV (17:52)
[2018-12-30 18:44] LABS: LACTIC ACID 0.8 mmol/L (0.5-2.0)
[2018-12-30] MEDS: LEVALBUTEROL (NEB) 1.25 MG/0.5 ML AMP INH (20:12)
[2018-12-30] MEDS ORDERED: NON-FORMULARY/PATIENT OWN MED (Budesonide-Formoterol Fumarate* (Symbicort*) 2 PUFF) INHALATION (21:00)
[2018-12-30] MEDS: LATANOPROST 0.005% 2.5 ML OPH BOTH EYES (21:08)
[2018-12-30] MEDS: DORZOLAMIDE 2% 10 ML OPH RIGHT EYE (21:08)
[2018-12-30] MEDS: GUAIFENESIN/DM 5ML CUP PO (23:57)
[2018-12-31] MEDS: SOD CHLORIDE 0.9% 1,000 ML IV ×2 (01:02→09:27)
[2018-12-31] MEDS: LEVALBUTEROL (NEB) 1.25 MG/0.5 ML AMP INH ×4 (01:55→23:58)
[2018-12-31] MEDS ORDERED: PENDING SANTYL ORDER FOR WOUND CARE XX (04:00)
[2018-12-31] MEDS: PIPER-TAZO 3.375 GM IV (PMX) 100 ML IVPB ×3 (06:18→22:25)
[2018-12-31] MEDS: HALOPERIDOL 5 MG INJ IM (08:01)
[2018-12-31] MEDS: GUAIFENESIN/DM 5ML CUP PO ×2 (08:01→14:45)
[2018-12-31 08:47] LABS: ADD MAN DIFF? NO
[2018-12-31 08:55] LABS: BASOPHIL # 0.1 10^3/ul (0.0-0.1); BASOPHILS % 0.4 % (0.0-2.0); EOSINOPHILS # 0.2 10^3/ul (0.0-0.5); HEMOGLOBIN 8.7 g/dl (12.0-16.0); LYMPHOCYTES # 1.4 10^3/ul (0.8-2.9); LYMPHOCYTES % 12.2 % (15.0-51.0); MEAN CORPUSCULAR HEMOGLOBIN 26.6 pg (29.0-33.0); MEAN CORPUSCULAR VOLUME 88.7 fl (82.0-101.0); MEAN PLATELET VOLUME 9.9 fl (7.4-10.4); MONOCYTE # 0.8 10^3/ul (0.3-0.9); MONOCYTES % 6.8 % (0.0-11.0); NEUTROPHILS % 77.7 % (39.0-77.0); PLATELET COUNT 305 10^3/UL (140-415); RED BLOOD COUNT 3.27 10^6/ul (4.20-5.40); RED CELL DISTRIBUTION WIDTH 16.6 % (11.5-14.5)
[2018-12-31 08:55] LABS: WHITE BLOOD COUNT 11.6 10^3/ul (4.8-10.8)
[2018-12-31] MEDS: FAMOTIDINE 20 MG INJ IV (09:00)
[2018-12-31] MEDS: FLUTICASONE/VILANTEROL 200-25 INH DEVICE INH (09:00)
[2018-12-31] MEDS: AZITHROMYCIN 250 MG TAB PO (09:01)
[2018-12-31] MEDS: ENOXAPARIN 40 MG/0.4 ML SYG SC (09:01)
[2018-12-31] MEDS: QUETIAPINE 25 MG TAB PO ×2 (09:01→21:13)
[2018-12-31] MEDS: DORZOLAMIDE 2% 10 ML OPH RIGHT EYE ×2 (09:02→21:12)
[2018-12-31 09:23] LABS: ALANINE AMINOTRANSFERASE 16 IU/L (13-69); ALBUMIN 3.2 g/dl (3.3-4.9); ALBUMIN/GLOBULIN RATIO 0.94; ALKALINE PHOSPHATASE 168 IU/L (42-121); ANION GAP 9 (5-13); ASPARTATE AMINO TRANSFERASE 21 IU/L (15-46); BILIRUBIN,INDIRECT 0.3 mg/dl (0-1.1); BILIRUBIN,TOTAL 0.3 mg/dl (0.2-1.3); BLOOD UREA NITROGEN 23 mg/dl (7-20); CALCIUM 9.4 mg/dl (8.4-10.2); CARBON DIOXIDE 24 mmol/L (21-31); CHLORIDE 116 mmol/L (97-110); CREATININE 1.05 mg/dl (0.44-1.00); GLUCOSE 107 mg/dl (70-220); MAGNESIUM 2.5 mg/dl (1.7-2.5); POTASSIUM 3.4 mmol/L (3.5-5.1); SODIUM 149 mmol/L (135-144); TOTAL PROTEIN 6.6 g/dl (6.1-8.1)
[2018-12-31 09:23] LABS: PHOSPHORUS 3.7 mg/dl (2.5-4.9)
[2018-12-31 09:35] LABS: TROPONIN-I < 0.012 ng/ml (0.000-0.120)
[2018-12-31 09:36] LABS: FREE T4 (FREE THYROXINE) 1.02 ng/dl (0.78-2.44)
[2018-12-31 09:56] LABS: TRIIODOTHYRONINE 0.56 ng/ml (0.97-1.69)
[2018-12-31] MEDS: VANCOMYCIN HCL 1.5 GM in SOD CHLORIDE 0.9% 250 ML IVPB (18:07)
[2018-12-31] MEDS: POTASSIUM CHLORIDE 20 MEQ POWDER FOR ORAL SOLN PO (18:37)
[2018-12-31] MEDS: LATANOPROST 0.005% 2.5 ML OPH BOTH EYES (21:13)
[2018-12-31] MEDS: traZODone 50 MG TAB PO (21:14)
[2019-01-01] MEDS: SOD CHLORIDE 0.9% 1,000 ML IV (00:49)
[2019-01-01] MEDS: PIPER-TAZO 3.375 GM IV (PMX) 100 ML IVPB ×3 (05:31→22:00)
[2019-01-01 06:48] LABS: ADD MAN DIFF? NO
[2019-01-01 06:57] LABS: WHITE BLOOD COUNT 9.1 10^3/ul (4.8-10.8)
[2019-01-01 06:57] LABS: BASOPHILS % 0.4 % (0.0-2.0); EOSINOPHILS # 0.5 10^3/ul (0.0-0.5); EOSINOPHILS % 5.2 % (0.0-7.0); HEMATOCRIT 31.5 % (37.0-47.0); HEMOGLOBIN 9.3 g/dl (12.0-16.0); LYMPHOCYTES # 1.2 10^3/ul (0.8-2.9); LYMPHOCYTES % 12.6 % (15.0-51.0); MEAN CORPUSCULAR HEMOGLOBIN 26.7 pg (29.0-33.0); MEAN CORPUSCULAR HGB CONC 29.5 g/dl (32.0-37.0); MEAN CORPUSCULAR VOLUME 90.5 fl (82.0-101.0); MEAN PLATELET VOLUME 9.8 fl (7.4-10.4); MONOCYTE # 0.6 10^3/ul (0.3-0.9); NEUTROPHIL # 6.8 10^3/ul (1.6-7.5); PLATELET COUNT 350 10^3/UL (140-415); RED BLOOD COUNT 3.48 10^6/ul (4.20-5.40); RED CELL DISTRIBUTION WIDTH 16.6 % (11.5-14.5)
[2019-01-01 07:30] LABS: ANION GAP 7 (5-13); BLOOD UREA NITROGEN 16 mg/dl (7-20); CALCIUM 9.8 mg/dl (8.4-10.2); CARBON DIOXIDE 24 mmol/L (21-31); CHLORIDE 119 mmol/L (97-110); CREATININE 0.88 mg/dl (0.44-1.00); GLUCOSE 114 mg/dl (70-220); SODIUM 150 mmol/L (135-144)
[2019-01-01 07:34] LABS: CREATININE 0.88 mg/dl (0.44-1.00)
[2019-01-01 07:34] LABS: BLOOD UREA NITROGEN 16 mg/dl (7-20)
[2019-01-01 07:38] LABS: MAGNESIUM 2.4 mg/dl (1.7-2.5)
[2019-01-01 07:38] LABS: PHOSPHORUS 3.1 mg/dl (2.5-4.9)
[2019-01-01] MEDS: LEVALBUTEROL (NEB) 1.25 MG/0.5 ML AMP INH ×2 (08:00→16:07)
[2019-01-01] MEDS: ENOXAPARIN 40 MG/0.4 ML SYG SC (09:00)
[2019-01-01] MEDS: FAMOTIDINE 20 MG INJ IV (09:22)
[2019-01-01] MEDS: FLUTICASONE/VILANTEROL 200-25 INH DEVICE INH (09:23)
[2019-01-01] MEDS: DORZOLAMIDE 2% 10 ML OPH RIGHT EYE ×2 (09:23→20:55)
[2019-01-01] MEDS: AZITHROMYCIN 250 MG TAB PO (09:23)
[2019-01-01] MEDS: QUETIAPINE 25 MG TAB PO ×2 (09:24→20:58)
[2019-01-01] MEDS: DEXTROSE 5% 1,000 ML IV (15:18)
[2019-01-01] MEDS: VANCOMYCIN HCL 1.5 GM in SOD CHLORIDE 0.9% 250 ML IVPB (18:07)
[2019-01-01 18:31] LABS: ADD UMIC YES; UR ASCORBIC ACID 20 mg/dL (NEGATIVE); UR BILIRUBIN (Dip) NEGATIVE (NEGATIVE); UR BLOOD (Dip) NEGATIVE (NEGATIVE); UR CLARITY SLIGHTLY CLOUDY (CLEAR); UR COLOR YELLOW (YELLOW); UR GLUCOSE (Dip) NEGATIVE (NEGATIVE); UR KETONES (Dip) NEGATIVE (NEGATIVE); UR LEUKOCYTE ESTERASE (Dip) NEGATIVE Leu/ul (NEGATIVE); UR NITRITE (Dip) NEGATIVE (NEGATIVE); UR RBC 2 /HPF (0-5); UR SPECIFIC GRAVITY (Dip) 1.018 (1.003-1.030); UR SQUAMOUS EPITHELIAL CELL FEW /HPF (FEW); UR TOTAL PROTEIN (Dip) 1+ mg/dl (NEGATIVE); UR UROBILINOGEN (Dip) NEGATIVE (NEGATIVE); UR WBC 3 /HPF (0-5)
[2019-01-01 19:28] LABS: SODIUM,URINE RANDOM > 198 mmol/L (30-90)
[2019-01-01] MEDS: LATANOPROST 0.005% 2.5 ML OPH BOTH EYES (20:55)
[2019-01-02] MEDS: LEVALBUTEROL (NEB) 1.25 MG/0.5 ML AMP INH ×3 (03:58→17:05)
[2019-01-02] MEDS: PIPER-TAZO 3.375 GM IV (PMX) 100 ML IVPB ×2 (06:00→14:00)
[2019-01-02] MEDS ORDERED: VANCOMYCIN IV PER PHARMACY XX (06:30)
[2019-01-02] MEDS: FLUTICASONE/VILANTEROL 200-25 INH DEVICE INH (09:00)
[2019-01-02] MEDS: FAMOTIDINE 20 MG TAB PO (09:09)
[2019-01-02] MEDS: POLYETHYLENE GLYCOL 17 GM PACKET PO (09:09)
[2019-01-02] MEDS: QUETIAPINE 25 MG TAB PO ×2 (09:09→21:39)
[2019-01-02] MEDS: DORZOLAMIDE 2% 10 ML OPH RIGHT EYE ×2 (09:10→21:47)
[2019-01-02] MEDS: HALOPERIDOL 5 MG INJ IM (09:17)
[2019-01-02] MEDS: ENOXAPARIN 40 MG/0.4 ML SYG SC (09:19)
[2019-01-02] MEDS: DEXTROSE 5% 1,000 ML IV (09:30)
[2019-01-02 15:28] LABS: SODIUM 146 mmol/L (135-144)
[2019-01-02] MEDS: VANCOMYCIN HCL 1.5 GM in SOD CHLORIDE 0.9% 250 ML IVPB (17:44)
[2019-01-02] MEDS: metroNIDAZOLE 500 MG TAB PO (21:39)
[2019-01-02] MEDS: CLINDAMYCIN 150 MG CAP PO (21:39)
[2019-01-02] MEDS: LATANOPROST 0.005% 2.5 ML OPH BOTH EYES (21:40)
[2019-01-03] MEDS: DEXTROSE 5% 1,000 ML IV (05:00)
[2019-01-03] MEDS: metroNIDAZOLE 500 MG TAB PO (05:43)
[2019-01-03] MEDS: CLINDAMYCIN 150 MG CAP PO (05:43)
[2019-01-03] MEDS: POLYETHYLENE GLYCOL 17 GM PACKET PO (08:42)
[2019-01-03] MEDS: QUETIAPINE 25 MG TAB PO (08:42)
[2019-01-03] MEDS: FUROSEMIDE 20 MG TAB PO (08:42)
[2019-01-03] MEDS: FAMOTIDINE 20 MG TAB PO (08:43)
[2019-01-03] MEDS: POTASSIUM CHLORIDE (SR) 8 MEQ CAP PO (08:43)
[2019-01-03] MEDS: ENOXAPARIN 40 MG/0.4 ML SYG SC (08:43)
[2019-01-03] MEDS: DORZOLAMIDE 2% 10 ML OPH RIGHT EYE (08:53)
[2019-01-03] MEDS: FLUTICASONE/VILANTEROL 200-25 INH DEVICE INH (08:53)
== END 2019-01-03 12:15 | DRG 871 ==
LOC: E/R 12:05 → 2NE 14:08 → 5EC 15:50
DX: A41.9 Sepsis, unspecified organism (principal); J69.0 Pneumonitis due to inhalation of food and vomit; E87.0 Hyperosmolality and hypernatremia; R65.20 Severe sepsis without septic shock; F03.90 Unspecified dementia, unspecified severity, without behavioral disturbance, psychotic disturbance, mood disturbance, and anxiety; I10 Essential (primary) hypertension; R62.7 Adult failure to thrive; E03.9 Hypothyroidism, unspecified; I25.2 Old myocardial infarction; D50.9 Iron deficiency anemia, unspecified; I25.10 Atherosclerotic heart disease of native coronary artery without angina pectoris; Z79.02 Long term (current) use of antithrombotics/antiplatelets; Z74.01 Bed confinement status; Z88.0 Allergy status to penicillin
CPT/HCPCS: 36415; 71045; 80048; 80053; 81001; 82565; 83605; 83735; 84100; 84295; 84300; 84439; 84443; 84480; 84484; 84520; 85025; 85610; 85730; 87040-91; 87081; 87086; 92610; 93005; 93970; 94640; 94664; 96374; 96375; 99285-25